=== PATIENT | female | born 1985 | race Caucasian/White ===

== ENCOUNTER 2019-05-04 17:28 | Emergency (ER) | payer BC ==
--- NOTE | 2019-05-04 18:15 | ER Document Report ---
HPI - HPI Time Seen by Provider: 05/04/19 18:14 Notes: Patient is a 34-year-old female no significant past medical history, currently on her menstrual cycle, who presents after noticing a small bruise to her lower suprapubic area today. Patient states that she came for evaluation. She is not having any pain or discomfort otherwise. She is able to eat and drink without difficulties. She is urinating normally and having normal bowel movements. She is not on any blood thinning medications. Denies any injection use to this area. No other areas of bruising noted. Patient states that the bruising has since completely resolved and is no longer there. Denies any headache, fever, head injury, neck pain, changes in vision/speech/mentation/hearing, URI, sore throat, chest pain, palpitations, syncope, cough, shortness of breath, wheeze, dyspnea, abdominal pain, nausea/vomiting/diarrhea, urinary retention, dysuria, hematuria, loss of control of bowel or bladder, numbness/tingling, saddle anesthesia, muscle paralysis/weakness, or rash. - ROS Systems Reviewed and Negative: Yes All other systems reviewed and negative Past Medical History - Social History Smoking Status: Unknown if Ever Smoked Family History: Reviewed & Not Pertinent Vertical Provider Document - CONSTITUTIONAL Agree With Documented VS: Yes Notes: PHYSICAL EXAMINATION: GENERAL: Well-appearing, well-nourished and in no acute distress. HEAD: Atraumatic, normocephalic. EYES: Pupils equal round and reactive to light, extraocular movements intact, sclera anicteric, conjunctiva are normal. ENT: Nares patent and without discharge. oropharynx clear without exudates. No tonsilar hypertrophy or erythema. Moist mucous membranes. NECK: Normal range of motion, supple without lymphadenopathy LUNGS: Breath sounds clear to auscultation bilaterally and equal. No wheezes rales or rhonchi. HEART: Regular rate and rhythm without murmurs, rubs, gallops. ABDOMEN: Soft, nontender, nondistended abdomen. No guarding, no rebound. Normal bowel sounds present. No CVA tenderness bilaterally. Musculoskeletal: FROM to passive/active. Strength 5+/5. Extremities: No cyanosis, clubbing, or edema b/l. Peripheral pulses 2+. Capillary refill less than 3 seconds. NEUROLOGICAL: Cranial nerves grossly intact. Normal speech, normal gait. PSYCH: Normal mood, normal affect. SKIN: Warm, Dry, normal turgor, no rashes or lesions noted. There is no evidence of ecchymosis/hematoma to the skin. Course - Re-evaluation Re-evalutation: 05/04/19 18:17 Patient is an afebrile, well-hydrated, 34-year-old female who presents for a worried well visit without any ecchymosis noted in the area of concern or anywhere else. Vitals are acceptable without significant tachycardia, tachypnea, hypoxia. PE is otherwise unremarkable. Patient is nontoxic- appearing and is tolerating p.o. without difficult he. Her abdomen is soft and nontender throughout. Patient does admit that it is no longer there and will continue to monitor for any changes. Low suspicion for any other systemic emergent condition at this time. Should any bruising return she is to take a picture and to come back for evaluation for possible blood work. She is otherwise asymptomatic. Patient to recheck with your PCM later this week. Return to the ED with any other worsening/concerning symptoms. Information for the women's clinic was provided per request of patient so she can speak with someone about control. Patient is in agreement with plan. - Vital Signs Vital signs: Temp Pulse Resp BP Pulse Ox 98.1 F 73 16 107/52 L 96 05/04/19 17:53 05/04/19 17:53 05/04/19 17:53 05/04/19 17:53 05/04/19 17:53 Discharge - Discharge Clinical Impression: Worried well Condition: Stable Disposition: HOME, SELF-CARE Additional Instructions: Rest, Ice Monitor symptoms closely for any changes Tylenol as needed F/u with your PCP in 3-5 days for a recheck Return to the ED with any worsening symptoms and/or development of fever, headache, chest pain, palpitations, syncope, shortness of breath, trouble breathing, abdominal pain, n/v/d, muscle weakness/paralysis, numbness/tingling, swelling, redness, or other worsening symptoms that are concerning to you. Referrals: [facility] [Provider Group] - Follow up as needed
[2019-05-04 18:37] VITALS: BP 108/60
== END 2019-05-04 18:32 | disposition home or self-care (01) ==
LOC: ER 17:28
DX: Z71.1 Person with feared health complaint in whom no diagnosis is made (principal)
CPT/HCPCS: 99281

== ENCOUNTER 2019-07-16 08:06 | Emergency (ER) | payer BC ==
[2019-07-16 08:28] VITALS: BP 117/75
== END 2019-07-16 09:01 | disposition left against medical advice (07) ==
LOC: ER 08:06
DX: Z53.21 Procedure and treatment not carried out due to patient leaving prior to being seen by health care provider (principal)